=== PATIENT | female | born 1965 | race Caucasian/White ===

== ENCOUNTER → 2021-02-20 | Outpatient (CLI) | payer BC ==
[~2021-02-20] MED LIST: CIPROFLOXACIN500 M1 PO; COMPAZINE10 MG PO; DEXAMETHASONE0.75 MG PO; FLAGYL500 MG PO; GAVISCON TABLE1 EACH PO; HYDROCODON-ACE1 EAC7 PO; IBUPROFEN 800800 MG PO; MIRALAX255 GM PO; NOHOMEMEDICATIONS; PROTONIX40 MG PO
== END ==
LOC: MRI 09:45
PROVIDERS: ATTEND Family Medicine
DX: M47.816 Spondylosis without myelopathy or radiculopathy, lumbar region (principal); M48.061 Spinal stenosis, lumbar region without neurogenic claudication; M54.41 Lumbago with sciatica, right side